=== PATIENT | female | born 1945 | race Two or more races ===

== ENCOUNTER → 2017-05-18 21:05 | Outpatient (CLI) | payer MEDICARE, SELFPAY ==
[2017-05-18 21:08] LABS: Bacteria 0 SEEN /hpf (None Seen); Mucous, Urine 0 SEEN /hpf (<or=2+)
[2017-05-18 21:18] LABS: Color, Urine Yellow (Yellow); Glucose, Dipstick Normal (Normal); Ketone-Dipstick Negative (Negative); Leukocyte Esterase-Dipstick 500 /ul (Negative); Nitrite-Dipstick Negative (Negative); Occult Blood-Urine 250 /ul (Negative); Protein-Dipstick 15 mg/dl (Negative); Specific Gravity, Urine 1.005 (1.002-1.030); Urine Bilirubin Dipstick Negative (Negative); Urine Clarity Sl. Cloudy (Clear); Urine Urobilinogen Normal (Normal)
[2017-05-18 21:41] LABS: Squamous Epithelial Cells - UA 0-5 SEEN /hpf (5-10)
[2017-05-18 21:42] LABS: Red Blood Cells-Urine 25-50 SEEN /hpf (0-5)
[2017-05-18 21:46] LABS: Transitional Epithelial - Ur 0-5 SEEN /hpf (0-5)
[2017-05-18 21:58] LABS: White Blood Cells >100 SEEN /hpf (0-5)
[2017-05-18 22:01] LABS: Renal Epithelial Cells 0-5 SEEN /hpf (0-5)
== END ==
PROVIDERS: Visit Provider Family Medicine
DX: R30.0 Dysuria (principal)
CPT/HCPCS: 81001; 87086; 87088; 87186